=== PATIENT | female | born 1955 | race Caucasian/White ===

== ENCOUNTER 2016-11-10 07:55 | Day surgery (SDC) | payer OTHER ==
[~2016-11-10] VITALS: Ht 167.6 cm; Wt 73.7 kg
[~2016-11-10 07:55] MED LIST: ANUSOL-HC21 GM PR; APLISOL5 TUB UNIT ID; ASPIR 8181 M1 PO; ASPIR 8181 MG PO; ASPIRIN PO; BETHANECHOL CHL25 MG PO; BP PILL PO; BUMETANIDE1 MG PO; BUMEX1 MG PO; BUMEX2 MG PO; CALCITRIOL0.25 MCG PO; CALCIUM ACETAT667 M2 PO; CALCIUM ACETAT667 MG PO; CENTRUM SILV1 TABLE1 PO; CIPRO500 MG PO; CYANOCOBAL1000 MCG/2 IM; CYANOCOBALAM1000 MCG PO; Cymbalta PO; DAILY VALUE1 EACH PO; DIABETIC MED; DOCUSATE SODIU100 MG PO; DULCOLAX10 MG PR; ELIQUIS5 MG PO; ENDOCET 5-3251 EACH PO; ENEMA133 M2 PR; FEOSOL325 MG PO; FISH OIL500 MG PO; FLORASTOR250 MG PO; FOLBEE PLUS TABL5 MG PO; FOLBEE TABLET1 EACH PO; FUROSEMIDE40 MG PO; GABAPENTIN300 MG PO; GABAPENTIN400 MG PO; GLIMEPIRIDE2 MG PO; HECTOROL4 MCG/2 M1 IV; HYDROCORTISONE30 G2 PR; IBUPROFEN100 MG PO; KEFLEX500 MG PO; KLONOPIN0.5 M1 PO; LASIX20 MG PO; LEVEMIR FL100 UNIT/1 SC; LEVEMIR FL100 UNITS/ SC; LEVEMIR100 UNIT/2 SQ; LEVOFLOXACIN500 MG PO; LIDOPRIL 2.5%-1 EACH TP; LINEZOLID600 MG PO; LO-DOSE ASPIRIN81 M1 PO; LOPERAMIDE2 M1 PO; LOPRESSOR25 MG PO; LOPRESSOR50 MG PO; LYRICA100 MG PO; LYRICA50 MG PO; Levaquin PO; Levemir Flexpen SC; Lyrica PO; METFORMIN HCL500 MG PO; METHENAMINE MAND1 GM PO; METOPROLOL SUCC25 MG PO; METOPROLOL TART25 MG PO; MILK OF MAGN PO; MOTRIN400 M1 PO; NEURONTIN300 MG PO; NOVOLOG PE100 UNITS/ SC; NOVOLOG100 UNIT/2 SQ; Novolog Pen 3 Ml SC; OMEGA 3 500 SO1 EACH PO; OXAYDO5 MG PO; OXYCODONE-APAP1 EAC4 PO; OXYCODONE-APAP1 EACH PO; PERCOCET 10/1 TABLET PO; PERCOCET 5/31 TABLET PO; PROTONIX40 MG PO; RENAL CAPS SOFTG1 MG PO; RENVELA800 MG PO; Rocephin IM; SENSIPAR30 MG PO; SILVADENE20 GM TP; TOPROL XL25 MG PO; TRADJENTA5 MG PO; TRAMADOL HCL50 MG PO; TYLENOL REGULA325 MG PO; Tylenol Regular Stre PO; ULTRAM50 MG PO; VANCOMYCIN HCL1 GM IV; VITAMIN B12; VITAMIN D; VITAMIN D-32000 UNI2 PO; VITAMIN D1000 UNIT PO; VITAMIN D250000 UNIT PO; VITAMIN E1000 UNI1 PO; VITRON-C TABLE1 EACH PO; Vicodin,Lortab 5/500 PO; ZOFRAN4 MG PO
[2016-11-10 09:38] LABS: METH RESISTANT S AUREUS PCR NEGATIVE (NEGATIVE)
[2016-11-10 09:39] LABS: PROBE CHECK PASS; SPECIMEN PROCESSING CONTROL PASS
[2016-11-10 10:15] LABS: INTER. NORMALIZED RATIO 1.2; PTT 142.4 (25-32)
== END 2016-11-10 11:40 | disposition home or self-care (01) ==
LOC: CATH 07:55
PROVIDERS: Surgery
PROC: 05CC0ZZ Extirpation of Matter from Left Basilic Vein, Open Approach (ICD-10-PCS; principal; 2016-11-10)
DX: T82.868A Thrombosis due to vascular prosthetic devices, implants and grafts, initial encounter (principal); Y83.2 Surgical operation with anastomosis, bypass or graft as the cause of abnormal reaction of the patient, or of later complication, without mention of misadventure at the time of the procedure; Z99.2 Dependence on renal dialysis; N18.6 End stage renal disease
CPT/HCPCS: 85610; 85730; 87641; C1725; C1757; C1769; C1894; C2628; J0690; J1644; J2250; J3010; S0020

== ENCOUNTER 2016-11-11 07:48 | Inpatient (IN) | payer OTHER ==
[~2016-11-11] VITALS: Ht 170.2 cm; Wt 78.6 kg
[2016-11-11 08:28] LABS: ANION GAP 19 MEQ/L (2-14); CHLORIDE 105 mEq/L (99-109); CREATININE 7.2 mg/dL (0.6-1.3); GLUCOSE 209 mg/dL (70-99); ISTAT DEVICE 369301; POTASSIUM > 6.0 mEq/L (3.7-5.4); SODIUM 133 mEq/L (136-147); UREA NITROGEN (BUN) 123 mg/dL (9-23)
[2016-11-11 08:45] LABS: EOSINOPHIL (%) 0.7 % (0-5); EOSINOPHIL COUNT 0.1 K/uL (0-0.3); HEMATOCRIT 37.8 % (36.0-46.0); IMMATURE GRANULOCYTE (%) 0.5 % (0.0-0.7); IMMATURE GRANULOCYTE COUNT 0.4 K/uL; LYMPHOCYTE COUNT 0.8 K/uL (1.0-2.8); MCH 33.5 PG (29.0-34.0); MCHC 31.5 G/DL (30.0-36.0); MCV 106.5 FL (83-99); MEAN PLAT.VOLUME 10.4 uM^3 (9.5-12.4); MONOCYTE (%) 4.3 % (3-12); MONOCYTE COUNT 0.4 K/uL (0-0.8); NEUTROPHIL (%) 85.3 % (45-76); NEUTROPHIL COUNT 7.4 K/uL (1.8-6.4); PLATELET COUNT 147 K/uL (156-360); RBC DIS.WIDTH-CV 15.3 % (11.8-14.6); RBC DIS.WIDTH-SD 58.4 % (39-53); RED BLOOD COUNT 3.55 M/uL (3.80-5.20)
[2016-11-11 08:46] LABS: CHLORIDE 102 mEq/L (99-109); INTER. NORMALIZED RATIO 1.2; PROTHROMBIN TIME 11.9 (9.2-11.2); SODIUM 137 mEq/L (136-147); WHITE BLOOD COUNT 8.7 K/uL (4.1-10.2)
[2016-11-11 08:47] LABS: MAGNESIUM 2.4 mg/dL (1.3-2.7)
[2016-11-11 08:48] LABS: GLUCOSE 214 mg/dL (70-99)
[2016-11-11 08:50] LABS: ANION GAP 19 MEQ/L (2-14)
[2016-11-11 08:59] LABS: TROP-I INTERPRETATION NEGATIVE; TROPONIN-I 0.03 ng/mL (0.0-0.30)
[2016-11-11 09:04] LABS: POTASSIUM 9.3 MEQ/L (3.7-5.4)
[2016-11-11 09:13] LABS: ANION GAP 20 MEQ/L (2-14); CHLORIDE 109 mEq/L (99-109); CREATININE 6.8 mg/dL (0.6-1.3); GLUCOSE 216 mg/dL (70-99); ISTAT DEVICE 359068; POTASSIUM > 6.0 mEq/L (3.7-5.4); SODIUM 139 mEq/L (136-147); UREA NITROGEN (BUN) 111 mg/dL (9-23)
[2016-11-11 09:14] LABS: GFR ESTIMATE (CALCULATED) 5 mL/min/
[2016-11-11 09:16] LABS: UREA NITROGEN (BUN) 119 mg/dL (9-23)
[2016-11-11 13:24] LABS: POTASSIUM 4.4 MEQ/L (3.7-5.4)
[2016-11-11 16:31] VITALS: BP 142/72
[2016-11-11 17:26] LABS: ANION GAP 13 MEQ/L (2-14); CHLORIDE 96 MEQ/L (99-109); POTASSIUM 4.1 MEQ/L (3.7-5.4); SAMPLE HEMOLYSIS CHECK 0; SAMPLE ICTERIC CHECK 0; SAMPLE LIPEMIA CHECK 0; SODIUM 140 MEQ/L (136-147)
[2016-11-11 17:29] LABS: TROP-I INTERPRETATION NEGATIVE; TROPONIN-I 0.04 ng/mL (0.0-0.30)
[2016-11-11 17:31] LABS: GFR ESTIMATE (CALCULATED) 18 mL/min/; GLUCOSE 72 mg/dL (70-99); UREA NITROGEN (BUN) 28 mg/dL (9-23)
[2016-11-11 19:49] VITALS: BP 121/57
[2016-11-11 23:36] VITALS: BP 134/79
[2016-11-12 05:07] VITALS: BP 123/67
[2016-11-12 07:03] LABS: POINT-OF-CARE METER ID UU13113698
[2016-11-12 07:07] VITALS: BP 109/57
[2016-11-12 07:17] LABS: ANION GAP 11 MEQ/L (2-14); CHLORIDE 100 MEQ/L (99-109); GLUCOSE 71 mg/dL (70-99); SAMPLE HEMOLYSIS CHECK 0; SAMPLE ICTERIC CHECK 0; SAMPLE LIPEMIA CHECK 0; SODIUM 139 MEQ/L (136-147); UREA NITROGEN (BUN) 37 mg/dL (9-23)
[2016-11-12 07:19] LABS: GFR ESTIMATE (CALCULATED) 13 mL/min/; POTASSIUM 5.3 MEQ/L (3.7-5.4)
[2016-11-12 10:59] VITALS: BP 117/65
[2016-11-12 11:15] LABS: POINT-OF-CARE METER ID UU14174216
[2016-11-12 15:46] VITALS: BP 125/67
[2016-11-12 16:18] LABS: POINT-OF-CARE METER ID UU14174216
[2016-11-12 19:30] VITALS: BP 131/70
[2016-11-12 23:10] VITALS: BP 114/58
[2016-11-13 03:15] VITALS: BP 134/73
[2016-11-13 06:07] LABS: HEMATOCRIT 34.1 % (36.0-46.0); MCH 33.1 PG (29.0-34.0); MCHC 30.5 G/DL (30.0-36.0); MCV 108.6 FL (83-99); MEAN PLAT.VOLUME 10.8 uM^3 (9.5-12.4); NRBC (%) 0.4 /100 WBC (0-0); PLATELET COUNT 142 K/uL (156-360); RBC DIS.WIDTH-CV 15.3 % (11.8-14.6); RBC DIS.WIDTH-SD 60.4 % (39-53); RED BLOOD COUNT 3.14 M/uL (3.80-5.20); WHITE BLOOD COUNT 6.4 K/uL (4.1-10.2)
[2016-11-13 06:31] LABS: BASOPHIL COUNT 0.1 K/uL (0-0.1); EOSINOPHIL COUNT 0.3 K/uL (0-0.3); IMMATURE GRANULOCYTE (%) 0.3 % (0.0-0.7); LYMPHOCYTE COUNT 1.8 K/uL (1.0-2.8); MONOCYTE (%) 10.5 % (3-12); MONOCYTE COUNT 0.7 K/uL (0-0.8); NEUTROPHIL (%) 55.6 % (45-76); NEUTROPHIL COUNT 3.6 K/uL (1.8-6.4)
[2016-11-13 06:46] LABS: ANION GAP 14 MEQ/L (2-14); CHLORIDE 99 MEQ/L (99-109); SAMPLE HEMOLYSIS CHECK 0; SAMPLE ICTERIC CHECK 0; SAMPLE LIPEMIA CHECK 0; SODIUM 138 MEQ/L (136-147)
[2016-11-13 06:52] LABS: GFR ESTIMATE (CALCULATED) 9 mL/min/; GLUCOSE 157 mg/dL (70-99); POTASSIUM 6.1 MEQ/L (3.7-5.4); UREA NITROGEN (BUN) 62 mg/dL (9-23)
[2016-11-13 07:53] VITALS: BP 138/76
[2016-11-13 17:29] LABS: POINT-OF-CARE METER ID UU14174216
[2016-11-13 20:00] VITALS: BP 128/65
[2016-11-13 23:00] VITALS: BP 126/69
[2016-11-14 03:30] VITALS: BP 124/63
[2016-11-14 05:30] LABS: HEMATOCRIT 33.7 % (36.0-46.0); MCH 32.9 PG (29.0-34.0); MCHC 30.9 G/DL (30.0-36.0); MCV 106.6 FL (83-99); MEAN PLAT.VOLUME 10.8 uM^3 (9.5-12.4); PLATELET COUNT 155 K/uL (156-360); RBC DIS.WIDTH-CV 14.8 % (11.8-14.6); RBC DIS.WIDTH-SD 57.3 % (39-53); RED BLOOD COUNT 3.16 M/uL (3.80-5.20); WHITE BLOOD COUNT 6.3 K/uL (4.1-10.2)
[2016-11-14 06:05] LABS: ANION GAP 11 MEQ/L (2-14); CHLORIDE 96 MEQ/L (99-109); GFR ESTIMATE (CALCULATED) 16 mL/min/; GLUCOSE 154 mg/dL (70-99); POTASSIUM 4.9 MEQ/L (3.7-5.4); SAMPLE HEMOLYSIS CHECK 1; SAMPLE ICTERIC CHECK 0; SAMPLE LIPEMIA CHECK 0; SODIUM 133 MEQ/L (136-147); UREA NITROGEN (BUN) 35 mg/dL (9-23)
[2016-11-14 09:06] VITALS: BP 139/67
[2016-11-14 11:59] LABS: POINT-OF-CARE METER ID UU13113698
[2016-11-14 12:27] VITALS: BP 125/63
[2016-11-14] MEDS ORDERED: ULTRAM50 MG PO (14:56)
== END 2016-11-14 15:04 | disposition home or self-care (01) | DRG 640 ==
LOC: EME → EDBD 07:48 → EDOF 09:32 → 4EAST 09:32
PROVIDERS: Emergency Medicine; Internal Medicine; Internal Medicine Nephrology
PROC: 5A1D60Z (ICD-10-PCS; principal; 2016-11-11)
DX: E87.5 Hyperkalemia (principal); N18.6 End stage renal disease; I12.0 Hypertensive chronic kidney disease with stage 5 chronic kidney disease or end stage renal disease; E11.22 Type 2 diabetes mellitus with diabetic chronic kidney disease; E11.40 Type 2 diabetes mellitus with diabetic neuropathy, unspecified; E87.2 Acidosis; Z85.72 Personal history of non-Hodgkin lymphomas; I73.9 Peripheral vascular disease, unspecified; I25.10 Atherosclerotic heart disease of native coronary artery without angina pectoris; E78.5 Hyperlipidemia, unspecified; E66.9 Obesity, unspecified; Z89.511 Acquired absence of right leg below knee; Z79.4 Long term (current) use of insulin
CPT/HCPCS: 71010; 80047; 80048; 80048 91; 80069; 82948; 83605; 83735; 84484; 84999; 85025; 85027; 85610; 85730; 87040; 87340; 87493; 87641; 93005; 99281; 99285; C1725; C1757; C1769; C1894; C2628; J0690; J1270; J1644; J1815; J2250; J3010; S0020

== ENCOUNTER 2017-01-22 07:53 | Inpatient (IN) | payer OTHER ==
[~2017-01-22] VITALS: Ht 160 cm; Wt 82.6 kg
[2017-01-22 08:45] LABS: BASOPHIL COUNT 0.1 K/uL (0-0.1); EOSINOPHIL (%) 3.4 % (0-5); EOSINOPHIL COUNT 0.3 K/uL (0-0.3); HEMATOCRIT 35.2 % (36.0-46.0); IMMATURE GRANULOCYTE (%) 0.5 % (0.0-0.7); INSTRUMENT ABS NEUTROPHIL CT 5.5 K/uL; LYMPHOCYTE COUNT 1.4 K/uL (1.0-2.8); MCH 34.5 PG (29.0-34.0); MCHC 31.8 G/DL (30.0-36.0); MCV 108.3 FL (83-99); MEAN PLAT.VOLUME 10.5 uM^3 (9.5-12.4); MONOCYTE (%) 8.6 % (3-12); MONOCYTE COUNT 0.7 K/uL (0-0.8); NEUTROPHIL (%) 69.8 % (45-76); NEUTROPHIL COUNT 5.5 K/uL (1.8-6.4); NRBC (%) 0.3 /100 WBC (0-0); PLATELET COUNT 161 K/uL (156-360); RBC DIS.WIDTH-CV 14.9 % (11.8-14.6); RBC DIS.WIDTH-SD 57.8 % (39-53); RED BLOOD COUNT 3.25 M/uL (3.80-5.20); WHITE BLOOD COUNT 7.9 K/uL (4.1-10.2)
[2017-01-22 08:51] LABS: BICARBONATE 24.8 mEq/L (22-26); CARBOXY HGB 1.1 % (0-5); METHEMOGLOBIN 0.5 % (0-1.5); PO2 107 mm Hg (80-100); pH 7.35 (7.35-7.45)
[2017-01-22 08:52] LABS: COMMENTS - BLOOD GASES A+C+; DEVICE NC; O2 FLOW 2 L/MIN; PCO2 45 mm Hg (35-45); SITE RR
[2017-01-22 09:54] LABS: CHLORIDE 95 mEq/L (99-109); SODIUM 137 mEq/L (136-147)
[2017-01-22 09:55] LABS: MAGNESIUM 2.8 mg/dL (1.3-2.7)
[2017-01-22 09:57] LABS: GLUCOSE 110 mg/dL (70-99)
[2017-01-22 09:58] LABS: ANION GAP 17 MEQ/L (2-14)
[2017-01-22 09:59] LABS: TOTAL BILIRUBIN 0.4 mg/dL (0.0-1.0)
[2017-01-22 10:00] LABS: ALKALINE PHOSPHATASE 120 IU/L (3-129)
[2017-01-22 10:01] LABS: GFR ESTIMATE (CALCULATED) 5 mL/min/
[2017-01-22 10:02] LABS: POTASSIUM 6.7 mEq/L (3.7-5.4); UREA NITROGEN (BUN) 143 mg/dL (9-23)
[2017-01-22 10:51] LABS: TROP-I INTERPRETATION NEGATIVE; TROPONIN-I 0.01 ng/mL (0.0-0.30)
[2017-01-22] MEDS ORDERED: LOPRESSOR25 MG PO (12:38)
[2017-01-22] MEDS ORDERED: FERRIC CITRATE210 MG PO (12:43)
[2017-01-22] MEDS ORDERED: SENSIPAR30 MG PO (12:43)
[2017-01-22] MEDS ORDERED: TRADJENTA5 MG PO (12:44)
[2017-01-22] MEDS ORDERED: VELTASSA8.4 GM PO (12:44)
[2017-01-22] MEDS ORDERED: RENAPLEX D PO (12:48)
[2017-01-22 17:50] VITALS: BP 112/87
[2017-01-22 22:04] VITALS: BP 143/76
[2017-01-23 00:05] VITALS: BP 130/67
[2017-01-23 04:37] VITALS: BP 110/56
[2017-01-23 08:00] VITALS: BP 121/65
[2017-01-23 08:43] LABS: ANION GAP 12 MEQ/L (2-14); CHLORIDE 92 MEQ/L (99-109); SAMPLE HEMOLYSIS CHECK 0; SAMPLE ICTERIC CHECK 0; SAMPLE LIPEMIA CHECK 0; SODIUM 138 MEQ/L (136-147)
[2017-01-23 08:57] LABS: GFR ESTIMATE (CALCULATED) 10 mL/min/; GLUCOSE 81 mg/dL (70-99); UREA NITROGEN (BUN) 56 mg/dL (9-23)
[2017-01-23 08:58] LABS: POTASSIUM 4.5 MEQ/L (3.7-5.4)
== END 2017-01-23 11:54 | disposition home or self-care (01) | DRG 640 ==
LOC: EME → EDBD 07:53 → EME 07:53 → 2EAST 11:36 → EDOF 11:36 → 2EAST 11:36 → EDOF 11:49 → 2EAST 17:51
PROVIDERS: Emergency Medicine; Internal Medicine Nephrology
PROC: 5A1D00Z (ICD-10-PCS; principal; 2017-01-22)
DX: E87.5 Hyperkalemia (principal); N18.6 End stage renal disease; I12.0 Hypertensive chronic kidney disease with stage 5 chronic kidney disease or end stage renal disease; E11.22 Type 2 diabetes mellitus with diabetic chronic kidney disease; E11.319 Type 2 diabetes mellitus with unspecified diabetic retinopathy without macular edema; E11.40 Type 2 diabetes mellitus with diabetic neuropathy, unspecified; E78.5 Hyperlipidemia, unspecified; D63.1 Anemia in chronic kidney disease; Z99.2 Dependence on renal dialysis; Z85.72 Personal history of non-Hodgkin lymphomas; Z89.511 Acquired absence of right leg below knee
CPT/HCPCS: 36600; 71020; 80053; 80069; 82803; 83735; 84100; 84484; 85025; 93005; 94799; 99281; 99285; J1644

== ENCOUNTER 2017-03-15 08:49 | Day surgery (SDC) | payer OTHER ==
[~2017-03-15 08:49] MED LIST changes: +FERRIC CITRATE210 MG PO; +RENAPLEX D PO; +VELTASSA8.4 GM PO
[2017-03-15 09:26] LABS: POINT-OF-CARE METER ID UU13113696
[2017-03-15 10:39] LABS: METH RESISTANT S AUREUS PCR NEGATIVE (NEGATIVE); PROBE CHECK PASS; SPECIMEN PROCESSING CONTROL PASS
== END 2017-03-15 11:39 | disposition home or self-care (01) ==
LOC: CATH 08:49
PROVIDERS: Surgery
DX: T82.868A Thrombosis due to vascular prosthetic devices, implants and grafts, initial encounter (principal); N18.6 End stage renal disease; Z99.2 Dependence on renal dialysis
CPT/HCPCS: 82948; 87641; C1725; C1757; C1769; C1894; C2628; J0690; J1644; J2250; J3010; S0020

== ENCOUNTER 2017-04-25 13:00 | Day surgery (SDC) | payer OTHER ==
[2017-04-25 13:39] LABS: POINT-OF-CARE METER ID UU13113696
== END 2017-04-25 16:15 | disposition home or self-care (01) ==
LOC: CATH 13:00
PROVIDERS: Surgery
PROC: 05CY0ZZ Extirpation of Matter from Upper Vein, Open Approach (ICD-10-PCS; principal; 2017-04-25)
DX: T82.868A Thrombosis due to vascular prosthetic devices, implants and grafts, initial encounter (principal); N18.6 End stage renal disease; Z99.2 Dependence on renal dialysis
CPT/HCPCS: 82948; C1725; C1757; C1769; C1894; C2628; J0690; J1644; J2250; J3010; S0020

== ENCOUNTER 2017-07-25 15:00 | Day surgery (SDC) | payer OTHER ==
[2017-07-25] MEDS ORDERED: AURYXIA PO (15:33)
[2017-07-25] MEDS ORDERED: SOMA250 MG PO (15:34)
[2017-07-25] MEDS ORDERED: CHOLESTYRAMINE P4 GM PO (15:34)
[2017-07-25] MEDS ORDERED: LASIX40 MG PO (15:35)
[2017-07-25] MEDS ORDERED: GABAPENTIN300 MG PO (15:35)
[2017-07-25] MEDS ORDERED: GLIMEPIRIDE2 MG PO (15:36)
[2017-07-25] MEDS ORDERED: GLIPIZIDE5 MG PO (15:36)
[2017-07-25] MEDS ORDERED: LOPERAMIDE2 MG PO (15:36)
[2017-07-25] MEDS ORDERED: LOPRESSOR25 MG PO (15:37)
[2017-07-25] MEDS ORDERED: SSD25GM TP (15:38)
[2017-07-25] MEDS ORDERED: PREVALITE PACKET4 GM PO (15:38)
[2017-07-25] MEDS ORDERED: ROPINIROLE HCL0.5 MG PO (15:38)
[2017-07-25] MEDS ORDERED: SENSIPAR30 MG PO (15:38)
[2017-07-25] MEDS ORDERED: TRADJENTA5 MG PO (15:39)
[2017-07-25] MEDS ORDERED: TRAMADOL HCL50 MG PO (15:39)
[2017-07-25 15:48] LABS: POINT-OF-CARE METER ID UU13113696
== END 2017-07-25 18:39 | disposition home or self-care (01) ==
LOC: CATH 15:00
PROVIDERS: Surgery
DX: T82.868A Thrombosis due to vascular prosthetic devices, implants and grafts, initial encounter (principal); I89.0 Lymphedema, not elsewhere classified; N18.6 End stage renal disease; Z99.2 Dependence on renal dialysis
CPT/HCPCS: 82948; C1725; C1757; C1769; C1894; C2628; J0690; J1644; J2250; J3010; S0020

== ENCOUNTER 2017-10-23 19:21 | Emergency (ER) | payer OTHER ==
[~2017-10-23] VITALS: Ht 167.6 cm; Wt 94.5 kg
[~2017-10-23 19:21] MED LIST changes: +AURYXIA PO; +CHOLESTYRAMINE P4 GM PO; +GLIPIZIDE5 MG PO; +LASIX40 MG PO; +LOPERAMIDE2 MG PO; +PREVALITE PACKET4 GM PO; +ROPINIROLE HCL0.5 MG PO; +SOMA250 MG PO; +SSD25GM TP
[2017-10-23 20:00] LABS: BASOPHIL COUNT 0.1 K/uL (0-0.1); EOSINOPHIL (%) 4.6 % (0-5); EOSINOPHIL COUNT 0.4 K/uL (0-0.3); HEMATOCRIT 26.5 % (36.0-46.0); IMMATURE GRANULOCYTE (%) 0.4 % (0.0-0.7); INSTRUMENT ABS NEUTROPHIL CT 6.3 K/uL; LYMPHOCYTE COUNT 1.1 K/uL (1.0-2.8); MCH 35.6 PG (29.0-34.0); MCHC 33.2 G/DL (30.0-36.0); MCV 107.3 FL (83-99); MEAN PLAT.VOLUME 10.5 uM^3 (9.5-12.4); MONOCYTE (%) 6.3 % (3-12); MONOCYTE COUNT 0.5 K/uL (0-0.8); NEUTROPHIL (%) 74.6 % (45-76); NEUTROPHIL COUNT 6.3 K/uL (1.8-6.4); PLATELET COUNT 184 K/uL (156-360); RBC DIS.WIDTH-CV 13.3 % (11.8-14.6); RBC DIS.WIDTH-SD 51.5 % (39-53); RED BLOOD COUNT 2.47 M/uL (3.80-5.20); WHITE BLOOD COUNT 8.5 K/uL (4.1-10.2)
[2017-10-23 20:07] LABS: CHLORIDE 100 mEq/L (99-109); POTASSIUM 5.1 mEq/L (3.7-5.4); SODIUM 141 mEq/L (136-147)
[2017-10-23 20:09] LABS: GLUCOSE 253 mg/dL (70-99)
[2017-10-23 20:10] LABS: ANION GAP 15 MEQ/L (2-14)
[2017-10-23 20:12] LABS: GFR ESTIMATE (CALCULATED) 6 mL/min/
[2017-10-23 20:13] LABS: UREA NITROGEN (BUN) 72 mg/dL (9-23)
[2017-10-23 22:27] LABS: ADD MIUA? YES; BILIRUBIN NEGATIVE; BLOOD SMALL; COLOR AMBER ((YELLOW)); GLUCOSE (STRIP) >=500; KETONES NEGATIVE; LEUKOCYTES LARGE; NITRITE NEGATIVE; PROTEIN (STRIP) >=500; SPECIFIC GRAVITY 1.012 (1.000-1.030); UROBILINOGEN 0.2 MG/DL (0.2-1.0)
[2017-10-23 22:44] LABS: UCUL ADDED? YES; WHITE BLOOD CELLS TNTC /HPF (0-5)
[2017-10-23 22:46] LABS: URINE COMMENT FIELD OBSCURED BY
[2017-10-23] MEDS ORDERED: KEFLEX500 MG PO (23:26)
[2017-10-23 23:43] VITALS: BP 161/99
== END 2017-10-23 23:45 | disposition home or self-care (01) ==
LOC: EME 19:21
PROVIDERS: Emergency Medicine
DX: N39.0 Urinary tract infection, site not specified (principal); D64.9 Anemia, unspecified; F32.9 Major depressive disorder, single episode, unspecified; E11.9 Type 2 diabetes mellitus without complications; F41.9 Anxiety disorder, unspecified; Z86.73 Personal history of transient ischemic attack (TIA), and cerebral infarction without residual deficits; Z79.84 Long term (current) use of oral hypoglycemic drugs
CPT/HCPCS: 74176; 80048; 81003; 85025; 87077; 99281; 99285; J2270; J2405

== ENCOUNTER 2017-10-27 05:46 | Emergency (ER) | payer OTHER ==
[~2017-10-27] VITALS: Ht 167.6 cm; Wt 90.1 kg
[2017-10-27 06:50] LABS: BASOPHIL COUNT 0.1 K/uL (0-0.1); EOSINOPHIL (%) 3.8 % (0-5); EOSINOPHIL COUNT 0.3 K/uL (0-0.3); HEMATOCRIT 25.4 % (36.0-46.0); IMMATURE GRANULOCYTE (%) 0.4 % (0.0-0.7); LYMPHOCYTE COUNT 1.2 K/uL (1.0-2.8); MCH 34.9 PG (29.0-34.0); MCHC 32.7 G/DL (30.0-36.0); MCV 106.7 FL (83-99); MEAN PLAT.VOLUME 10.5 uM^3 (9.5-12.4); MONOCYTE (%) 7.2 % (3-12); MONOCYTE COUNT 0.5 K/uL (0-0.8); NEUTROPHIL (%) 70.9 % (45-76); PLATELET COUNT 193 K/uL (156-360); RBC DIS.WIDTH-CV 13.3 % (11.8-14.6); RBC DIS.WIDTH-SD 50.8 % (39-53); RED BLOOD COUNT 2.38 M/uL (3.80-5.20); WHITE BLOOD COUNT 7.1 K/uL (4.1-10.2)
[2017-10-27 07:18] LABS: ANION GAP 13 MEQ/L (2-14); CHLORIDE 99 MEQ/L (99-109); GFR ESTIMATE (CALCULATED) 7 mL/min/; GLUCOSE 247 mg/dL (70-99); POTASSIUM 5.3 MEQ/L (3.7-5.4); SAMPLE HEMOLYSIS CHECK 0; SAMPLE ICTERIC CHECK 0; SAMPLE LIPEMIA CHECK 0; SODIUM 138 MEQ/L (136-147); UREA NITROGEN (BUN) 73 mg/dL (9-23)
[2017-10-27 09:37] LABS: ADD MIUA? YES; BILIRUBIN NEGATIVE; BLOOD NEGATIVE; COLOR YELLOW ((YELLOW)); GLUCOSE (STRIP) >=500; KETONES NEGATIVE; LEUKOCYTES MODERATE; NITRITE NEGATIVE; PROTEIN (STRIP) >=500; SPECIFIC GRAVITY 1.012 (1.000-1.030); UROBILINOGEN 0.2 MG/DL (0.2-1.0)
[2017-10-27 09:40] LABS: BACTERIA RARE /HPF; EPITHELIAL CELLS 1+ /HPF; MUCUS NONE SEEN /LPF; UCUL ADDED? YES; WHITE BLOOD CELLS TNTC /HPF (0-5)
[2017-10-27 16:30] VITALS: BP 134/72
== END 2017-10-27 16:30 | disposition home or self-care (01) ==
LOC: EME 05:46
PROVIDERS: Emergency Medicine
DX: I12.0 Hypertensive chronic kidney disease with stage 5 chronic kidney disease or end stage renal disease (principal); E11.22 Type 2 diabetes mellitus with diabetic chronic kidney disease; N18.6 End stage renal disease; Z99.2 Dependence on renal dialysis; N12 Tubulo-interstitial nephritis, not specified as acute or chronic; D63.1 Anemia in chronic kidney disease; M47.896 Other spondylosis, lumbar region; K42.9 Umbilical hernia without obstruction or gangrene; K80.20 Calculus of gallbladder without cholecystitis without obstruction; Z79.01 Long term (current) use of anticoagulants; Z79.84 Long term (current) use of oral hypoglycemic drugs; Z90.710 Acquired absence of both cervix and uterus; Z90.722 Acquired absence of ovaries, bilateral; Z85.72 Personal history of non-Hodgkin lymphomas; Z89.511 Acquired absence of right leg below knee; Z80.1 Family history of malignant neoplasm of trachea, bronchus and lung
CPT/HCPCS: 74176; 80048; 81003; 85025; 87077; 87086 GA; 87186; J1580; J3010; J7050

== ENCOUNTER 2018-01-08 04:33 | Emergency (ER) | payer OTHER ==
[~2018-01-08] VITALS: Ht 167.6 cm; Wt 81.8 kg
[2018-01-08 07:48] LABS: HEMATOCRIT 27.7 % (36.0-46.0); HEMOGLOBIN 9.1 G/DL (11.9-15.5); MCH 34.6 PG (29.0-34.0); MCHC 32.9 G/DL (30.0-36.0); MCV 105.3 FL (83-99); PLATELET COUNT 142 K/uL (156-360); RBC DIS.WIDTH-CV 13.7 % (11.8-14.6); RBC DIS.WIDTH-SD 52.7 % (39-53); RED BLOOD COUNT 2.63 M/uL (3.80-5.20); WHITE BLOOD COUNT 9.2 K/uL (4.1-10.2)
[2018-01-08 08:14] LABS: ALBUMIN 3.9 G/DL (3.2-4.8); ALKALINE PHOSPHATASE 84 IU/L (3-129); ALT (GPT) 13 IU/L (3-49); AST (GOT) 10 IU/L (2-34); CHLORIDE 97 MEQ/L (99-109); GFR ESTIMATE (CALCULATED) 6 mL/min/; GLUCOSE 243 mg/dL (70-99); POTASSIUM 5.2 MEQ/L (3.7-5.4); SODIUM 138 MEQ/L (136-147); TOTAL BILIRUBIN 0.5 MG/DL (0.0-1.0); TOTAL PROTEIN 6.6 G/DL (6.4-8.3); UREA NITROGEN (BUN) 72 mg/dL (9-23)
[2018-01-08 10:07] LABS: APPEARANCE SL.HAZY ((CLEAR)); BILIRUBIN NEGATIVE; BLOOD NEGATIVE; COLOR YELLOW ((YELLOW)); GLUCOSE (STRIP) >=500; KETONES NEGATIVE; LEUKOCYTES MODERATE; NITRITE NEGATIVE; PROTEIN (STRIP) >=500; SPECIFIC GRAVITY 1.011 (1.000-1.030); UROBILINOGEN 0.2 MG/DL (0.2-1.0)
[2018-01-08 10:12] LABS: BACTERIA 1+ /HPF; EPITHELIAL CELLS RARE /HPF; MUCUS NONE SEEN /LPF; RED BLOOD CELLS 0-5 /HPF (0-5); UCUL ADDED? YES; WHITE BLOOD CELLS TNTC /HPF (0-5)
[2018-01-08 10:30] VITALS: BP 159/88
== END 2018-01-08 11:17 | disposition home or self-care (01) ==
LOC: EME 04:33
PROVIDERS: Physician Assistant
DX: S22.42XA Multiple fractures of ribs, left side, initial encounter for closed fracture (principal); J98.11 Atelectasis; J90 Pleural effusion, not elsewhere classified; R07.89 Other chest pain; W01.0XXA Fall on same level from slipping, tripping and stumbling without subsequent striking against object, initial encounter; M25.562 Pain in left knee; E11.22 Type 2 diabetes mellitus with diabetic chronic kidney disease; I12.9 Hypertensive chronic kidney disease with stage 1 through stage 4 chronic kidney disease, or unspecified chronic kidney disease; N18.9 Chronic kidney disease, unspecified; Z99.2 Dependence on renal dialysis; K43.2 Incisional hernia without obstruction or gangrene; K80.20 Calculus of gallbladder without cholecystitis without obstruction; D64.9 Anemia, unspecified; I25.10 Atherosclerotic heart disease of native coronary artery without angina pectoris; Z79.01 Long term (current) use of anticoagulants; Z86.73 Personal history of transient ischemic attack (TIA), and cerebral infarction without residual deficits; Z85.72 Personal history of non-Hodgkin lymphomas; Z87.440 Personal history of urinary (tract) infections; Z89.611 Acquired absence of right leg above knee; F32.9 Major depressive disorder, single episode, unspecified; F41.9 Anxiety disorder, unspecified
CPT/HCPCS: 70450; 71250; 72125; 73564; 74176; 80053; 81003; 85027; 87077; 87086; 87186

== ENCOUNTER 2018-03-14 10:58 | Day surgery (SDC) | payer OTHER ==
[2018-03-14] MEDS ORDERED: ENDOCET 5-3251 EACH PO (11:34)
== END 2018-03-14 14:20 | disposition home or self-care (01) ==
LOC: CATH 10:58
DX: T82.868A Thrombosis due to vascular prosthetic devices, implants and grafts, initial encounter (principal)
CPT/HCPCS: 87641; C1725; C1757; C1769; C1894; C2628; J0690; J1644; J2250; J3010; S0020

== ENCOUNTER 2018-03-15 11:41 | Day surgery (SDC) | payer OTHER | END 2018-03-15 14:14 | disposition home or self-care (01) | LOC: CATH 11:41 | PROVIDERS: Surgery | DX: T82.868A Thrombosis due to vascular prosthetic devices, implants and grafts, initial encounter (principal); I12.0 Hypertensive chronic kidney disease with stage 5 chronic kidney disease or end stage renal disease; N18.6 End stage renal disease; Z99.2 Dependence on renal dialysis | CPT/HCPCS: 82948; C1725; C1757; C1769; C1874; C1894; C2628; J0690; J1644; J2250; J3010; S0020 ==

== ENCOUNTER 2018-05-08 10:25 | Day surgery (SDC) | payer OTHER | END 2018-05-08 20:00 | disposition home or self-care (01) | LOC: CATH 10:25 | PROVIDERS: Surgery | DX: T82.868A Thrombosis due to vascular prosthetic devices, implants and grafts, initial encounter (principal); Y83.2 Surgical operation with anastomosis, bypass or graft as the cause of abnormal reaction of the patient, or of later complication, without mention of misadventure at the time of the procedure; N18.6 End stage renal disease; Z99.2 Dependence on renal dialysis | CPT/HCPCS: 82948; 87641; C1725; C1757; C1769; C1894; C2628; J0690; J1644; J2250; J3010; S0020 ==

== ENCOUNTER 2018-05-18 08:57 | Day surgery (SDC) | payer OTHER | END 2018-05-18 11:58 | disposition home or self-care (01) | LOC: CATH 08:57 | PROVIDERS: Surgery | DX: T82.818A Embolism due to vascular prosthetic devices, implants and grafts, initial encounter (principal); T82.858A Stenosis of other vascular prosthetic devices, implants and grafts, initial encounter; I12.0 Hypertensive chronic kidney disease with stage 5 chronic kidney disease or end stage renal disease; N18.6 End stage renal disease; Z99.2 Dependence on renal dialysis; Y83.2 Surgical operation with anastomosis, bypass or graft as the cause of abnormal reaction of the patient, or of later complication, without mention of misadventure at the time of the procedure | CPT/HCPCS: 82948; 87641; C1725; C1757; C1769; C1887; C1894; J0690; J1644; J2250; J3010; S0020 ==

== ENCOUNTER 2018-06-05 14:21 | Day surgery (SDC) | payer OTHER ==
[2018-06-05] MEDS ORDERED: ELIQUIS5 MG PO (15:13)
[2018-06-06] MEDS ORDERED: VALIUM5 MG PO (10:47)
[2018-06-06] MEDS ORDERED: CONSTULOSE10 GM/15 M PO (10:48)
[2018-06-06] MEDS ORDERED: ZYVOX600 MG PO (10:49)
[2018-06-06] MEDS ORDERED: LINZESS72 MCG PO (10:49)
[2018-06-06] MEDS ORDERED: METHENAMINE HIPP1 GM PO (10:50)
[2018-06-06] MEDS ORDERED: RENVELA800 MG PO (10:51)
[2018-06-06] MEDS ORDERED: SENSIPAR30 MG PO (10:51)
== END 2018-06-05 17:48 | disposition home or self-care (01) ==
LOC: CATH 14:21
PROVIDERS: Surgery
DX: T82.868A Thrombosis due to vascular prosthetic devices, implants and grafts, initial encounter (principal); N18.6 End stage renal disease; Z99.2 Dependence on renal dialysis; Y83.2 Surgical operation with anastomosis, bypass or graft as the cause of abnormal reaction of the patient, or of later complication, without mention of misadventure at the time of the procedure
CPT/HCPCS: 82948; 87641; C1750; C1894; J0690; J1644; J2250; J3010; S0020

== ENCOUNTER 2018-06-08 07:51 | Day surgery (SDC) | payer OTHER ==
[~2018-06-08] VITALS: Ht 167.6 cm; Wt 77.1 kg
[~2018-06-08 07:51] MED LIST changes: +CONSTULOSE10 GM/15 M PO; +LINZESS72 MCG PO; +METHENAMINE HIPP1 GM PO; +VALIUM5 MG PO; +ZYVOX600 MG PO
[2018-06-08 08:38] LABS: HEMATOCRIT 36.4 % (36.0-46.0); HEMOGLOBIN 12.3 G/DL (11.9-15.5); MCH 35.9 PG (29.0-34.0); MCHC 33.8 G/DL (30.0-36.0); MCV 106.1 FL (83-99); PLATELET COUNT 135 K/uL (156-360); RBC DIS.WIDTH-SD 66.4 % (39-53); RED BLOOD COUNT 3.43 M/uL (3.80-5.20); WHITE BLOOD COUNT 7.2 K/uL (4.1-10.2)
[2018-06-08] MEDS ORDERED: ZYVOX600 MG/300 IV (08:39)
[2018-06-08 08:49] LABS: CHLORIDE 104 mEq/L (99-109); POTASSIUM 5.4 mEq/L (3.7-5.4); SODIUM 141 mEq/L (136-147)
[2018-06-08 08:51] LABS: GLUCOSE 124 mg/dL (70-99)
[2018-06-08 08:55] LABS: CREATININE 6.9 mg/dL (0.6-1.3); GFR ESTIMATE (CALCULATED) 6 mL/min/; UREA NITROGEN (BUN) 77 mg/dL (9-23)
[2018-06-08 09:39] VITALS: BP 142/92
[2018-06-08 14:13] VITALS: BP 155/62
[2018-06-08 15:20] VITALS: BP 156/62
== END 2018-06-08 15:20 | disposition home or self-care (01) ==
LOC: SDC 07:51
PROVIDERS: Surgery
DX: I12.0 Hypertensive chronic kidney disease with stage 5 chronic kidney disease or end stage renal disease (principal); E11.22 Type 2 diabetes mellitus with diabetic chronic kidney disease; N18.6 End stage renal disease; Z99.2 Dependence on renal dialysis; Z82.49 Family history of ischemic heart disease and other diseases of the circulatory system; Z83.3 Family history of diabetes mellitus; Z79.84 Long term (current) use of oral hypoglycemic drugs
CPT/HCPCS: 80048; 82948; 85027; 93005; J0131; J0690; J1170; J1644; J2720; J3010; S0020